=== PATIENT | female | born 1995 | race Asian ===

== ENCOUNTER 2018-09-21 23:23 | Emergency (ER) | payer OTHER ==
[2018-09-22] MEDS ORDERED: Ibuprofen TAB* 600 MG PO ONE (01:00)
--- NOTE | 2018-09-22 02:24 | ED ---
Lower Extremity - HPI Summary HPI Summary: 22-year-old female presents to ED after left patella dislocation. Was reduced by EMS. States she was dancing and left patella dislocating. She states she's had this pain before. No new numbness or tingling. She states the pain has been persisting. States that her knee feels unsteady. Denies any other injury. - History of Current Complaint Chief Complaint: EDExtremityLower Stated Complaint: "POS LEFT KNEE DISLOCATION" PER PT Time Seen by Provider: 09/22/18 02:17 Pain Intensity: 8 - Allergies/Home Medications Allergies/Adverse Reactions: Allergies Allergy/AdvReac Type Severity Reaction Status Date / Time No Known Allergies Allergy Verified 09/21/18 23:38 PMH/Surg Hx/FS Hx/Imm Hx Endocrine/Hematology History: Denies: Hx Anticoagulant Therapy Cardiovascular History: Denies: Hx Myocardial Infarction Infectious Disease History: No Infectious Disease History: Denies: Traveled Outside the [place] in Last 30 Days - Family History Known Family History: Positive: Non-Contributory - Social History Substance Use Type: Reports: None Smoking Status (MU): Never Smoked Tobacco Review of Systems Negative: Fever Negative: Chest Pain Negative: Shortness Of Breath Positive: Myalgia - left knee pain All Other Systems Reviewed And Are Negative: Yes Physical Exam Triage Information Reviewed: Yes Vital Signs On Initial Exam: Initial Vitals Temp Pulse Resp BP Pulse Ox 99.1 F 96 16 129/72 99 09/21/18 23:38 09/21/18 23:38 09/21/18 23:38 09/21/18 23:38 09/21/18 23:38 Vital Signs Reviewed: Yes Appearance: Positive: Well-Appearing Skin: Positive: Warm, Dry Head/Face: Positive: Normal Head/Face Inspection Eyes: Positive: Normal, Conjunctiva Clear ENT: Positive: Pharynx normal Respiratory/Lung Sounds: Positive: Clear to Auscultation, Breath Sounds Present Cardiovascular: Positive: Normal, RRR Musculoskeletal: Positive: Limited @ - left knee, Other - tenderness along patella tendon left, good pulses, Neurological: Positive: Normal Psychiatric: Positive: Normal Diagnostics - Vital Signs Vital Signs Temp Pulse Resp BP Pulse Ox 09/22/18 01:40 98.3 F 74 14 118/67 99 09/21/18 23:38 99.1 F 96 16 129/72 99 - Laboratory Lab Statement: Any lab studies that have been ordered have been reviewed, and results considered in the medical decision making process. - Radiology knee Radiology Interpretation Completed By: ED Physician Summary of Radiographic Findings: no fracture Lower Extremity Course/Dx - Course Course Of Treatment: 22-year-old female presents to ED after left patella dislocation. Was reduced by EMS. States she was dancing and left patella dislocating. She states she's had this pain before. No new numbness or tingling. She states the pain has been persisting. States that her knee feels unsteady. Denies any other injury. On exam tenderness along left patella. Neurovascular intact. X-rays normal. gave knee immbolizer. Told follow up with ortho. Patient understands and agrees with plan. - Diagnoses Differential Diagnosis/HQI/PQRI: Positive: Dislocation, Fracture (Closed), Sprain Provider Diagnoses: Dislocation of left patella Discharge - Sign-Out/Discharge Documenting (check all that apply): Patient Departure Patient Received Moderate/Deep Sedation with Procedure: No - Discharge Plan Condition: Good Disposition: HOME Patient Education Materials: Patellar Dislocation (ED) Forms: *Gen. Provider Communication Referrals: Deidra Jones NP [Primary Care Provider] - Bijan Brunson MD [Medical Doctor] - Additional Instructions: Use immobilizer Ice, elevate, Ibuprofen or Tylenol every 6 hours for pain Follow up with ortho Return to ED if develop or any new or worsening symptoms - Billing Disposition and Condition Condition: GOOD Disposition: Home
[2018-09-22 02:39] VITALS: BP 127/64
== END 2018-09-22 02:38 | disposition home or self-care (01) ==
LOC: ED 23:23
DX: S83.005A Unspecified dislocation of left patella, initial encounter (principal); X50.9XXA Other and unspecified overexertion or strenuous movements or postures, initial encounter; Y93.41 Activity, dancing; M25.462 Effusion, left knee
CPT/HCPCS: 99282; A9270-GY